=== PATIENT | female | born 1985 | race African-American/Black ===

== ENCOUNTER 2019-05-28 16:54 | Observation (INO) | payer MEDICAID ==
[~2019-05-28] VITALS: Ht 170.2 cm; Wt 108.9 kg
[2019-05-28] MEDS ORDERED: FERR325T6 PO (17:57)
[2019-05-28] MEDS ORDERED: PREN-118 PO (17:58)
== END 2019-05-28 20:45 | disposition home or self-care (01) ==
LOC: 8 EST LDRP 16:54
PROVIDERS: ADMIT Obstetrics & Gynecology; ATTEND Obstetrics & Gynecology
DX: O26.893 Other specified pregnancy related conditions, third trimester (principal); R10.9 Unspecified abdominal pain; Z3A.36 36 weeks gestation of pregnancy
CPT/HCPCS: 76805; 76818; 99281; G0378

== ENCOUNTER 2019-06-11 07:17 | Inpatient (IN) | payer MEDICAID ==
[~2019-06-11] VITALS: Ht 170.2 cm; Wt 112.5 kg
[~2019-06-11 07:17] MED LIST: FERR325T6 PO; PREN-118 PO
[2019-06-11] MEDS ORDERED: DEXT 5%/LR + PITOCIN 20UNITS/L 1,000 ML IV SCH ×2 (07:36→15:02)
[2019-06-11] MEDS ORDERED: METHYLERGONOVINE MALEATE 0.2 MG/ML IM PRN (07:45)
[2019-06-11] MEDS ORDERED: NALOXONE HCL 0.4 MG/ML 1ML VIAL IM PRN (07:45)
[2019-06-11] MEDS ORDERED: CARBOPROST TROMETHAMINE 250 MCG/ML AMPUL IM PRN (07:45)
[2019-06-11] MEDS: LACTATED RINGERS 1,000 ML IV SCH ×2 (08:09→09:57)
[2019-06-11 08:43] LABS: BASOPHILS % 0.8 % (0.0-2.0); EOSINOPHILS % 0.7 % (0.0-5.0); HEMATOCRIT. 35.5 % (36.0-48.0); HEMOGLOBIN. 12.1 g/dL (12.0-16.0); LYMPHOCYTES % 26.8 % (20.0-50.0); MEAN CORPUSCULAR HEMOGLOBIN 31.1 pg (28.0-32.0); MEAN CORPUSCULAR VOLUME 91.4 fL (81.0-99.0); MEAN PLATELET VOLUME 9.4 fl (7.4-10.4); NEUTROPHILS % 65.7 % (40.0-76.0); PLATELET 211 x1000/uL (130-400); RED BLOOD CELL COUNT 3.88 mill/uL (4.2-5.4); RED CELL DISTRIBUTION WIDTH 14.5 % (11.6-14.6)
[2019-06-11 08:58] LABS: CLARITY URINE CLOUDY (CLEAR); COLOR URINE YELLOW (YELLOW); KETONES URINE NEGATIVE (NEGATIVE); LEUKOCYTE ESTERASE URINE 1+ (NEGATIVE); NITRITE URINE NEGATIVE (NEGATIVE); OCCULT BLOOD URINE NEGATIVE (NEGATIVE); PH URINE 6.5 (4.5-8.0); PROTEIN URINE NEGATIVE (NEGATIVE); SPECIFIC GRAVITY URINE 1.016 (1.005-1.030); UROBILINOGEN URINE 0.2 E.U./dL (0.2-1.0)
[2019-06-11 09:06] LABS: PARTIAL THROMBOPLASTIN TIME 28.5 sec (23.4-31.0); PROTHROMBIN TIME 10.1 sec (9.6-11.0)
[2019-06-11 09:41] LABS: *AMPHETAMINES SCREEN URINE NEGATIVE (NEGATIVE); *BARBITURATES SCREEN URINE NEGATIVE (NEGATIVE); *BENZODIAZEPINES SCREEN URINE NEGATIVE (NEGATIVE); *COCAINE SCREEN URINE NEGATIVE (NEGATIVE); METHADONE URINE SCREEN NEGATIVE (NEGATIVE)
[2019-06-11 09:42] LABS: CANNABINOID URINE SCREEN NEGATIVE (NEGATIVE); OPIATES URINE SCREEN NEGATIVE (NEGATIVE); PHENCYCLIDINE URINE SCREEN NEGATIVE (NEGATIVE)
[2019-06-11] MEDS ORDERED: CITRIC ACID/SODIUM CITRATE SOLN 30ML UDC PO NR (10:37)
[2019-06-11] MEDS ORDERED: SODIUM CHLORIDE 0.9% 10ML VIAL ONE (10:56)
[2019-06-11] MEDS ORDERED: OXYTOCIN 10 UNITS/ML 1ML ONE ×2 (10:56→12:15)
[2019-06-11] MEDS ORDERED: MORPHINE SULFATE/PF 1MG/ML 10ML AMP ONE (10:56)
[2019-06-11] MEDS ORDERED: FENTANYL CITRATE/PF 50MCG/ML 2ML VIAL ONE (10:56)
[2019-06-11] MEDS ORDERED: BUPIVACAINE HCL/DEXTROSE/PF 0.75% 2ML AMP INJ ONE (10:57)
[2019-06-11] MEDS ORDERED: PHENYLEPHRINE HCL 10 MG/ML 1ML (IV VIAL) IV ONE (10:57)
[2019-06-11] MEDS ORDERED: KETOROLAC 60MG/2ML VIAL IM ONE (10:57)
[2019-06-11] MEDS ORDERED: METOCLOPRAMIDE HCL 10MG/2ML VIAL ONE (10:57)
[2019-06-11] MEDS ORDERED: ONDANSETRON HCL 4MG/2ML INJ ONE (10:57)
[2019-06-11] MEDS ORDERED: SODIUM BICARBONATE 4% (2.4MEQ) 5ML VIAL IV ONE (10:58)
[2019-06-11] MEDS ORDERED: CLINDAMYCIN 900 MG PREMIX 50 ML IV ONE (10:58)
[2019-06-11] MEDS ORDERED: DIPHENHYDRAMINE 50MG/ML VIAL IM PRN (12:45)
[2019-06-11] MEDS ORDERED: BUTORPHANOL TARTRATE 2 MG/ML VIAL IV PRN (12:45)
[2019-06-11] MEDS ORDERED: KETOROLAC 30MG/ML VIAL IV PRN (12:45)
[2019-06-11] MEDS ORDERED: NALOXONE HCL 0.4 MG/ML 1ML VIAL IV PRN (12:45)
[2019-06-11] MEDS ORDERED: ONDANSETRON HCL 4MG/2ML INJ IM PRN (12:45)
[2019-06-11 13:20] LABS: HEPATITIS B SURFACE ANTIGEN NEGATIVE
[2019-06-11 14:45] VITALS: BP 132/74
[2019-06-11 15:15] VITALS: BP 126/72
[2019-06-11] MEDS ORDERED: IBUPROFEN 400MG TABLET PO PRN (15:15)
[2019-06-11] MEDS ORDERED: LANOLIN OINT 7GM TUBE TOP PRN (15:15)
[2019-06-11] MEDS ORDERED: ONDANSETRON HCL 4MG/2ML INJ IV PRN (15:15)
[2019-06-11] MEDS ORDERED: DIPHENHYDRAMINE 25MG CAPSULE PO PRN (15:15)
[2019-06-11] MEDS ORDERED: RHO(D) IMMUNE GLOBULIN 300 MCG/SYR IM PRN (15:15)
[2019-06-11] MEDS ORDERED: BISACODYL 10MG SUPP PR PRN (15:15)
[2019-06-11 19:40] VITALS: BP 113/59
[2019-06-11] MEDS: DOCUSATE SODIUM 100MG CAPSULE PO SCH (20:43)
[2019-06-11 23:40] VITALS: BP 115/63
[2019-06-12 04:00] VITALS: BP 114/65
[2019-06-12 06:52] LABS: BASOPHILS % 0.4 % (0.0-2.0); EOSINOPHILS % 0.6 % (0.0-5.0); HEMATOCRIT. 33.4 % (36.0-48.0); HEMOGLOBIN. 11.3 g/dL (12.0-16.0); LYMPHOCYTES % 15.5 % (20.0-50.0); MEAN CORPUSCULAR HEMOGLOBIN 31.2 pg (28.0-32.0); MEAN PLATELET VOLUME 9.3 fl (7.4-10.4); MONOCYTES % 7.1 % (2.0-8.0); NEUTROPHILS % 76.4 % (40.0-76.0); PLATELET 191 x1000/uL (130-400); RED BLOOD CELL COUNT 3.63 mill/uL (4.2-5.4); RED CELL DISTRIBUTION WIDTH 14.3 % (11.6-14.6)
[2019-06-12] MEDS: IBUPROFEN 800MG TABLET PO PRN ×2 (07:19→20:07)
[2019-06-12 07:34] VITALS: BP 93/51
[2019-06-12] MEDS: PRENATAL VIT/FE FUMARATE/FA TABLET PO SCH (09:07)
[2019-06-12 15:57] VITALS: BP 105/50
[2019-06-12 19:56] VITALS: BP 114/66
[2019-06-12] MEDS: DOCUSATE SODIUM 100MG CAPSULE PO SCH (20:06)
[2019-06-12 23:45] VITALS: BP 115/65
[2019-06-13 04:00] VITALS: BP 113/65
[2019-06-13 08:00] VITALS: BP 115/68
[2019-06-13] MEDS: IBUPROFEN 800MG TABLET PO PRN ×2 (09:20→18:28)
[2019-06-13] MEDS: PRENATAL VIT/FE FUMARATE/FA TABLET PO SCH (09:20)
[2019-06-13 15:30] VITALS: BP 98/55
[2019-06-13 20:00] VITALS: BP 112/79
[2019-06-13] MEDS: DOCUSATE SODIUM 100MG CAPSULE PO SCH (21:33)
[2019-06-13] MEDS ORDERED: NAPROXEN 250MG TABLET PO SCH (23:00)
[2019-06-14] VITALS: BP 110/63
[2019-06-14 04:00] VITALS: BP 113/72
[2019-06-14] MEDS ORDERED: IBUP-2030 PO (06:54)
[2019-06-14] MEDS: PRENATAL VIT/FE FUMARATE/FA TABLET PO SCH (11:00)
[2019-06-14] MEDS ORDERED: NAPROXEN 250MG TABLET PO PRN (11:00)
== END 2019-06-14 11:30 | disposition home or self-care (01) | DRG 540 ==
LOC: OBSVTOIN 07:17 → 8 EST LDRP 07:17 → 8EST 14:45
PROVIDERS: ADMIT Obstetrics & Gynecology; ATTEND Obstetrics & Gynecology
PROC: 10D00Z1 Extraction of Products of Conception, Low, Open Approach (ICD-10-PCS; principal; 2019-06-11)
DX: O34.211 Maternal care for low transverse scar from previous cesarean delivery (principal); D62 Acute posthemorrhagic anemia; O99.02 Anemia complicating childbirth; Z3A.38 38 weeks gestation of pregnancy; Z37.0 Single live birth
CPT/HCPCS: 36415; 80305; 81003; 85025; 86592; 86703; 86762; 86850; 86900; 86920; 87340; 88307; G0378; J0595; J1200; J1885; J2274; J2370; J2405; J2590; J2765; J3010; J3490; J7120; A4315